=== PATIENT | male | born 2005 | race Caucasian/White ===

== ENCOUNTER 2024-05-13 17:39 | Emergency (ER) | payer BC, SELFPAY ==
[2024-05-13] MEDS ORDERED: ONDANSETRON 4 MG/2 ML VIAL ONE (18:50)
[2024-05-13] MEDS ORDERED: NA CHLORIDE 0.9% 1,000 ML ONE (18:50)
[2024-05-13 19:41] LABS: Absolute Lymphocytes (CBC) 0.5 K/uL (0.7-4.9); Absolute Monocytes 0.5 K/uL (0.1-1.3); Absolute Neutrophil 12.2 K/uL (1.8-8.0); Basophils % 0.3 % (0-1.3); Eosinophils % 0.2 % (0-4.4); Hematocrit 46.1 % (39.6-49.0); Hemoglobin 16.5 g/dL (13.6-17.9); Lymphocytes % 3.5 % (15.3-44.8); MCH 32.6 pg (27.0-35.0); MCHC 35.9 g/dL (32.0-36.0); MCV 90.9 fL (80-100); MPV 8.2 fL (7.6-11.3); Monocytes % 3.6 % (3.3-12.3); Neutrophils % 92.4 % (41.7-73.7); Platelets 227 thou/uL (152-406); RBC Red Blood Cell Count 5.07 M/uL (4.33-5.43); Red Cell Distribution Width 13.1 % (12.1-15.2)
[2024-05-13 19:59] LABS: Albumin 3.9 g/dL (3.4-5.0); Albumin/Globulin Ratio 1.4 (1.1-1.8); Anion Gap 9.5 mEq/L (5.0-15.0); Bilirubin Total 2.2 mg/dL (0.2-1.0); Globulin 2.8 g/dL (2.3-3.5); Potassium 3.5 mEq/L (3.5-5.1); Protein, Total 6.7 g/dL (6.4-8.2)
[2024-05-13 20:42] LABS: White Blood Cell Scan OK (OK)
[2024-05-13 20:43] LABS: Blood Morphology Comment NOT SEEN (NOT SEEN); Platelet Estimate ADEQ
--- NOTE | 2024-05-13 21:34 | EDPHYS ---
Physician Documentation [facility] Name: Chavez Castellano Age: 18 yrs Sex: Male : 2005 Arrival Date: 05/13/2024 Time: 17:39 Bed 9 Private MD: ED Physician Abdulaziz Toney HPI: 05/13 18:30 This 18 yrs old Male presents to ER via EMS with complaints of Nausea/Vomiting. aj3 18:30 He reports that vomiting started about 4 AM and he is vomited multiple times at the day aj3 associated with a little diarrhea. He is unsure of any suspicious food intake. He denies any alcohol or drug use. No reports of any abdominal pain, fever or urinary symptoms.. Historical: - Allergies: 18:15 No Known Allergies; cm10 - Home Meds: 18:15 None [Active]; cm10 - PMHx: 18:15 None; cm10 - PSHx: 18:15 None; cm10 - Immunization history:: Adult Immunizations up to date. - Infectious Disease History:: Denies. - Social history:: Smoking status: Patient denies any tobacco usage or history of. ROS: 18:30 Constitutional: Negative for fever, chills, and weight loss, Cardiovascular: Negative aj3 for chest pain, palpitations, and edema, Respiratory: Negative for shortness of breath, cough, wheezing, and pleuritic chest pain, MS/Extremity: Negative for injury and deformity, Neuro: Negative for syncope, headache, weakness, numbness, tingling, and seizure, 18:30 Constitutional: Positive for 18:30 Abdomen/GI: Positive for nausea, vomiting, and diarrhea, Negative for abdominal pain, constipation, black/tarry stool, rectal bleeding, Exam: 18:30 Respiratory: Lungs have equal breath sounds bilaterally, clear to auscultation and aj3 percussion. No rales, rhonchi or wheezes noted. No increased work of breathing, no retractions or nasal flaring. Neuro: Awake and alert, GCS 15, oriented to person, place, time, and situation. Motor strength 5/5 in all extremities. Sensory grossly intact. Normal gait. 18:30 Constitutional: The patient appears alert, awake, uncomfortable, 18:30 Cardiovascular: Rate: tachycardic, Rhythm: regular, Heart sounds: normal, 18:30 Abdomen/GI: Bowel sounds: diminished, Palpation: abdomen is soft and non-tender, in all quadrants, Vital Signs: 18:14 BP 95 / 59; Pulse 123; Resp 22; Temp 98.8; Pulse Ox 100% on R/A; Weight 66.22 kg; cm10 Height 5 ft. 9 in. ; Pain 0/10; 19:39 BP 105 / 68; Pulse 98; Resp 16; Pulse Ox 100% on R/A; Pain 6/10; tl4 20:30 BP 112 / 65; Pulse 110; Resp 18; Pulse Ox 99% on R/A; tl4 21:00 BP 109 / 60; Pulse 114; Resp 20; Pulse Ox 99% on R/A; tl4 21:54 BP 106 / 63; Pulse 108; Resp 16; Temp 98.5(O); Pulse Ox 99% on R/A; tl4 18:14 Body Mass Index 21.56 (66.22 kg, 175.26 cm) - Percentile 33.8 % cm10 18:14 Pain Scale: Adult cm10 19:39 Pain Scale: Adult tl4 MDM: 18:12 Patient medically screened. aj3 21:00 Differential diagnosis: gastritis, pancreatitis, viral gastroenteritis. Data reviewed: aj3 vital signs, nurses notes, lab test result(s). Test considered but Not performed: CT: . Medication response: Zofran markedly relieved the patient's nausea. 21:32 ED course: Patient tolerated p.o. challenge. His labs were remarkable for mild aj3 leukocytosis likely reactive to pain. CT scan was considered but patient without acute abdominal pain or findings to warrant imaging today. Will discharge home with Zofran and advised to follow-up with PCP. Discharge instructions and ED return precautions given.. 05/13 18:21 Order name: CBC with Diff; Complete Time: 20:44 aj3 05/13 18:21 Order name: CMP; Complete Time: 20:00 aj3 05/13 18:21 Order name: Lipase; Complete Time: 20:00 aj3 05/13 19:45 Order name: CBC Smear Scan; Complete Time: 20:44 EDMS 05/13 18:21 Order name: IV Saline Lock; Complete Time: 19:37 aj3 05/13 18:21 Order name: Labs collected and sent; Complete Time: 19:37 aj3 Administered Medications: 19:40 Drug: NS 0.9% IV 1000 ml IV at 1 bolus Per protocol; 1000 mL bolus Route: IV; Rate: 1 tl4 bolus; Site: right antecubital; Delivery: Primary tubing; 21:56 Follow up: Response: No adverse reaction; IV Status: Completed infusion; IV Intake: tl4 1000ml 20:23 Drug: Ondansetron IVP 4 mg IVP once; over 2 minutes Route: IVP; Infused Over: 2 mins; tl4 Site: right antecubital; 21:56 Follow up: Response: No adverse reaction; Nausea is decreased tl4 Disposition Summary: 05/13/24 21:34 Discharge Ordered Problem: new aj3 Symptoms: have improved aj3 Condition: Stable aj3 Diagnosis - Noninfective gastroenteritis and colitis, unspecified aj3 Followup: aj3 - With: Private Physician - When: - Reason: Re-evaluation by your physician Discharge Instructions: - Discharge Summary Sheet aj3 - Viral Gastroenteritis, Adult aj3 Forms: - Medication Reconciliation Form aj3 - Antibiotic Education aj3 - Prescription Opioid Use aj3 - Patient Portal Instructions aj3 - Leadership Thank You Letter aj3 Prescriptions: - ZOFRAN ODT - take 4 milligram SUBLINGUAL route every 8 hours; 10 tablet; Refills: 0, Product aj3 Selection Permitted Signatures: Dispatcher [employer] Jocelin Sierra NP OUTSIDE MACHINIST aj3 Magda Mora, RN RN cm10 Rosalino Macias RN RN tl4
--- NOTE | 2024-05-13 21:34 | ER ---
Nurse's Notes [facility] Name: Chavez Castellano Age: 18 yrs Sex: Male : 2005 Arrival Date: 05/13/2024 Time: 17:39 Bed 9 Private MD: Diagnosis: Noninfective gastroenteritis and colitis, unspecified Presentation: 05/13 18:14 Chief complaint: Patient states: Nausea and vomiting onset at 0400. Pt reports cm10 approximately 8 episodes of vomiting. pt also reports diarrhea. Coronavirus screen: Client denies travel out of the [place] in the last 14 days. Ebola Screen: Patient denies travel to an Ebola-affected area in the 21 days before illness onset. No symptoms or risks identified at this time. Initial Sepsis Screen: Does the patient meet any 2 criteria? RR > 20 per min. HR > 90 bpm. Does the patient have a suspected source of infection? No. Patient's initial sepsis screen is negative. Risk Assessment: Do you want to hurt yourself or someone else? Patient reports no desire to harm self or others. Onset of symptoms was May 13, 2024. 18:14 Method Of Arrival: EMS: [facility] cm10 18:14 Acuity: ALEJANDRA 3 cm10 Triage Assessment: 18:16 General: Appears in no apparent distress. uncomfortable, Behavior is calm, cooperative. cm10 Neuro: No deficits noted. Level of Consciousness is awake, alert, obeys commands, Oriented to person, place, time, situation, Appropriate for age. Respiratory: No deficits noted. Airway is patent Respiratory effort is even, unlabored, Respiratory pattern is regular, symmetrical. Historical: - Allergies: 18:15 No Known Allergies; cm10 - Home Meds: 18:15 None [Active]; cm10 - PMHx: 18:15 None; cm10 - PSHx: 18:15 None; cm10 - Immunization history:: Adult Immunizations up to date. - Infectious Disease History:: Denies. - Social history:: Smoking status: Patient denies any tobacco usage or history of. Screenin:39 [facility] ED Fall Risk Assessment (Adult) History of falling in the last 3 months, tl4 including since admission No falls in past 3 months (0 pts) Confusion or Disorientation No (0 pts) Intoxicated or Sedated No (0 pts) Impaired Gait No (0 pts) Mobility Assist Device Used No (0 pt) Altered Elimination No (0 pt) Score/Fall Risk Level 0 - 2 = Low Risk Oriented to surroundings, Maintained a safe environment, Educated pt \T\ family on fall prevention, incl call for assistance when getting out of bed, Assessed \T\ reinforced patient's understanding of fall precautions. Abuse screen: Denies threats or abuse. Denies injuries from another. Nutritional screening: No deficits noted. Tuberculosis screening: No symptoms or risk factors identified. Assessment: 19:37 General: Appears in no apparent distress. Behavior is calm, cooperative. Pain: tl4 Complains of pain in abdomen. Neuro: Level of Consciousness is awake, alert, obeys commands, Oriented to person, place, time, situation, Moves all extremities. Full function Speech is normal. Cardiovascular: Capillary refill < 3 seconds Patient's skin is warm and dry. Respiratory: Airway is patent Respiratory effort is even, unlabored, Respiratory pattern is regular, symmetrical. GI: Reports upper abdominal pain, intolerance of fluids, intolerance of food, nausea, vomiting. GI: Abdomen is non-distended, Bowel sounds present X 4 quads. : No signs and/or symptoms were reported regarding the genitourinary system. EENT: No signs and/or symptoms were reported regarding the EENT system. Derm: No signs and/or symptoms reported regarding the dermatologic system. Musculoskeletal: No signs and/or symptoms reported regarding the musculoskeletal system. Vital Signs: 18:14 BP 95 / 59; Pulse 123; Resp 22; Temp 98.8; Pulse Ox 100% on R/A; Weight 66.22 kg; cm10 Height 5 ft. 9 in. ; Pain 0/10; 19:39 BP 105 / 68; Pulse 98; Resp 16; Pulse Ox 100% on R/A; Pain 6/10; tl4 20:30 BP 112 / 65; Pulse 110; Resp 18; Pulse Ox 99% on R/A; tl4 21:00 BP 109 / 60; Pulse 114; Resp 20; Pulse Ox 99% on R/A; tl4 21:54 BP 106 / 63; Pulse 108; Resp 16; Temp 98.5(O); Pulse Ox 99% on R/A; tl4 18:14 Body Mass Index 21.56 (66.22 kg, 175.26 cm) - Percentile 33.8 % cm10 18:14 Pain Scale: Adult cm10 19:39 Pain Scale: Adult tl4 ED Course: 17:45 Patient arrived in ED. ra3 18:12 Jocelin Bowman, MAEVE is PHCP. aj3 18:12 Abdulaziz Toney MD is Attending Physician. aj3 18:15 Triage completed. cm10 18:16 Arm band placed on Patient placed in waiting room. cm10 19:37 CBC with Diff Sent. tl4 19:37 CMP Sent. tl4 19:37 Lipase Sent. tl4 19:39 Patient has correct armband on for positive identification. Placed in gown. Bed in low tl4 position. Call light in reach. Side rails up X 1. Provided Education on: ed process, call lund. Client placed on continuous cardiac and pulse oximetry monitoring. NIBP monitoring applied. Door closed. Noise minimized. Lights dimmed. Moved to private room. Warm blanket given. 19:40 No provider procedures requiring assistance completed. Initial lab(s) drawn, by me, tl4 sent to lab. Inserted saline lock: 22 gauge in right antecubital area, using aseptic technique. Blood collected. Flushed with 10 mL NS. 20:21 Rosalino Macias, RN is Primary Nurse. tl4 21:42 IV discontinued, intact, bleeding controlled, No redness/swelling at site. Pressure tl4 dressing applied. Administered Medications: 19:40 Drug: NS 0.9% IV 1000 ml IV at 1 bolus Per protocol; 1000 mL bolus Route: IV; Rate: 1 tl4 bolus; Site: right antecubital; Delivery: Primary tubing; 21:56 Follow up: Response: No adverse reaction; IV Status: Completed infusion; IV Intake: tl4 1000ml 20:23 Drug: Ondansetron IVP 4 mg IVP once; over 2 minutes Route: IVP; Infused Over: 2 mins; tl4 Site: right antecubital; 21:56 Follow up: Response: No adverse reaction; Nausea is decreased tl4 Medication: 19:39 VIS not applicable for this client. tl4 Intake: 21:56 IV: 1000ml; Total: 1000ml. tl4 Outcome: 21:34 Discharge ordered by . aj3 21:42 Discharged to home ambulatory, with family, tl4 21:42 Condition: stable 21:42 Discharge instructions given to patient, Instructed on discharge instructions, follow up and referral plans. medication usage, Demonstrated understanding of instructions, follow-up care, medications, Prescriptions given X 1, 21:57 Patient left the ED. tl4 Signatures: Jocelin Bowman NP [employer]ATION HELPER aj3 Magda Mora, RN RN cm10 Rosalino Macias RN RN tl4 Arleen Cummings ra3 Corrections: (The following items were deleted from the chart) 21:56 21:54 BP 106 / 63; Pulse 108bpm; Resp 16bpm; Pulse Ox 99% RA; tl4 tl4
[2024-05-13 22:23] VITALS: O2SAT 99
[2024-05-13 22:25] VITALS: BP 106/63; TEMP 98.5
== END 2024-05-13 21:57 | disposition home or self-care (01) ==
LOC: ER 17:39
DX: K52.9 Noninfective gastroenteritis and colitis, unspecified (principal)
CPT/HCPCS: 36415; 80053; 83690; 85025; 96361; 96374; 99284; J2405; J7030